=== PATIENT | male | born 1960 | race Hispanic/Latino ===

== ENCOUNTER 2019-02-15 00:18 | Emergency (ER) | payer BC, SELFPAY ==
[2019-02-15] MEDS ORDERED: Famotidine 20 MG TAB ONE (00:48)
[2019-02-15 00:59] LABS: #Basophils 0.1 thou/uL (0.0-0.2); #Lymphocytes 2.1 thou/uL (1.20-3.40); %Basophils 0.5 % (0.0-1.0); %Eosinophils 0.1 % (0.0-10.0); %Lymphocytes 12.1 % (21.0-51.0); %Monocytes 6.1 % (0.0-10.0); %Neutrophils 81.2 % (42.0-75.0); Hemoglobin 16.5 g/dL (14.0-18.0); Mean Corpuscular HGB CONC 33.4 g/dL (32.0-36.0); Mean Corpuscular Hemoglobin 30.6 pg (27.0-31.0); Mean Corpuscular Volume 91.7 fL (78.0-98.0); Mean Platelet Volume 8.2 fL (7.4-10.4); Platelet Count 300 thou/uL (130-400); RBC Distribution Width 11.3 % (11.5-14.5); Red Blood Cell (RBC) Count 5.39 mill/uL (4.70-6.10); White Blood Cell (WBC) Count 17.2 thou/uL (4.8-10.8)
[2019-02-15 01:04] LABS: ALT (SGPT) 53 U/L (8-55); AST (SGOT) 32 U/L (5-34); Albumin 5.3 g/dL (3.5-5.0); Alkaline Phosphatase 99 U/L (40-110); Anion Gap 26 mmol/L (10-20); BUN (Urea Nitrogen) 48 mg/dL (8.4-25.7); Bilirubin, Total 0.4 mg/dL (0.2-1.2); CK (CPK) 537 U/L (30-200); Calc. Creatinine Clearance 0 mL/min (70-130); Calcium 10.6 mg/dL (7.8-10.44); Carbon Dioxide 23 mmol/L (22-29); Chloride 92 mmol/L (98-107); Estimated GFR-MDRD 11; Globulin 3.8 g/dL (2.4-3.5); Glucose 185 mg/dL (70-105); Potassium 3.9 mmol/L (3.5-5.1); Protein, Total 9.1 g/dL (6.0-8.3); Sodium 137 mmol/L (136-145)
[2019-02-15 01:37] LABS: Acetaminophen Less than 6.0 mcg/mL (10.0-30.0); Alcohol Less than 10 mg/dL (Less than 10); Salicylate Less than 8.0 mg/dL (15.0-30.0)
[2019-02-15 01:47] LABS: Bilirubin Negative (Negative); Blood, Urine Large (Negative); Clarity Cloudy (Clear); Glucose, Urine (Dipstick) Negative (Negative); Leukocyte Negative (Negative); Nitrite Negative (Negative); Protein, Urine (Dipstick) > or equal to 300 mg/dL (Neg-Trace); Urobilinogen 0.2 mg/dL (Less than 2)
[2019-02-15 01:55] LABS: RBC/HPF 0-3 HPF (0-3); Squamous Epithelial 0-3 HPF (0-3); WBC/HPF 0-3 HPF (0-3)
[2019-02-15 01:56] LABS: Mucous/LPF 1+ LPF (<2+)
[2019-02-15 02:17] LABS: Amphetamine Detected (NotDetected); Barbiturates Screen Not Detected (NotDetected); Benzodiazepine Screen Not Detected (NotDetected); Cocaine Metabolite Screen Detected (NotDetected); Medtox Control Line Valid? VALID (VALID); Methadone Not Detected (NotDetected); Methamphetamine Detected (NotDetected); Opiate Screen Not Detected (NotDetected); Oxycodone Screen Not Detected (NotDetected); Phencyclidine (PCP) Not Detected (NotDetected); THC/Cannabinoid Screen Not Detected (NotDetected); Tricyclic Screen Not Detected (NotDetected)
--- NOTE | 2019-02-15 07:15 | RAD ---
PORTABLE CHEST: Date: 02/15/19 An AP portable film at 0121 hours shows a normal sized heart for body habitus. There is no clear vasc ular congestion, edema, or pleural effusion. There is a slight prominence to the interstitial marking s that is probably chronic, perhaps some baseline fibrosis. The upper lobe vessels are not congested. Bony structures appear intact. IMPRESSION: No acute findings. POS: HOME
== END 2019-02-15 01:40 | disposition short-term general hospital (02) ==
LOC: BURERS 00:18
DX: N17.9 Acute kidney failure, unspecified (principal); E87.2 Acidosis; I10 Essential (primary) hypertension; F17.210 Nicotine dependence, cigarettes, uncomplicated
CPT/HCPCS: 71045; 80053; 80306; 80307; 81003; 81015; 82550; 83605; 85025